=== PATIENT | female | born 1950 | race Caucasian/White ===

== ENCOUNTER → 2016-05-28 | Outpatient (CLI) | payer BC ==
--- NOTE | 2016-05-28 11:30 | CT ---
EXAMINATION TYPE: CT sinus wo con DATE OF EXAM: 05/28/2016 11:07 AM COMPARISON: NONE HISTORY: Chronic sinusitis CT DLP: 551.60 mGycm Automated exposure control for dose reduction was used. FINDINGS: Visualized intraorbital and intracranial structures are unremarkable. Ostiomeatal complex patent bilaterally. There is no significant mucosal thickening involving the para nasal sinuses. No air-fluid levels. There is a nasal septal deviation. Nasopharyngeal and visualized oral pharyngeal soft tissue structures are within normal limits. IMPRESSION: NO CT EVIDENCE OF SINUSITIS. NASAL SEPTAL DEVIATION.
--- NOTE | 2016-05-28 11:56 | FL ---
EXAMINATION TYPE: FL barium swallow DATE OF EXAM: 05/28/2016 11:36 AM COMPARISON: NONE HISTORY: Hoarseness FINDINGS: Barium swallow difficulty in passing the esophagus without delay. Esophageal peristalsis an d motility was normal. There may be a residual tiny hiatal hernia. No evidence of gastroesophageal re flux. No evidence of obstruction or extravasation. Mild fold thickening near the distal GE junction o f the esophagus. IMPRESSION: 1. Mild fold thickening involving the distal esophagus can be seen with Isaac's esophagus. Correlat e clinically.
== END | disposition home or self-care (01) ==
LOC: RADCTMAIN 10:39
PROVIDERS: ATTEND Otolaryngology
DX: J32.9 Chronic sinusitis, unspecified (principal); K22.8 Other specified diseases of esophagus
CPT/HCPCS: 70486; 74220

== ENCOUNTER 2018-03-28 10:08 | Emergency (ER) | payer BC, MEDICARE ==
[2018-03-28 10:33] VITALS: RESP 18; TEMP 97.5
[2018-03-28] MEDS ORDERED: LIDOCAINE 5% PATCH TOPICAL STA (10:48)
--- NOTE | 2018-03-28 11:10 | XR ---
EXAMINATION TYPE: XR lumbar spine 2 or 3V DATE OF EXAM: 03/28/2018 COMPARISON: None HISTORY: Back pain with plain down TECHNIQUE: Three-view lumbar spine FINDINGS: Vertebral body heights are preserved. There is some disc space narrowing present diffusely L2-3 posteriorly at L3-4. Minimal grade 1 spondylolisthesis of L4 on L5 may be present. IMPRESSION: 1. Mild degenerative disc changes mid lumbar spine. 2. Minimal grade 1 spondylolisthesis of L4 anterior and L5 may be present. 3. MRI may be useful for additional evaluation.
--- NOTE | 2018-03-28 11:34 | ED ---
General Adult HPI - General Chief complaint: Back Pain/Injury Stated complaint: lower back pain Time Seen by Provider: 03/28/18 10:37 Source: patient, RN notes reviewed Mode of arrival: ambulatory Limitations: no limitations - History of Present Illness Initial comments: Patient 67-year-old female presenting to the emergency room today with a chief complaint of increased lower back pain. She does admit that she was having some aches in her lower back over the last few days. She states today she woke up and was trying to get out of bed and felt increased pain in lower back. She states greater than the left side radiating towards the left hip. She does admit that it's worse with bending. She states that it's worse going from a laying to standing position. She states when she gets up and he has to walk around and seems to begin to feel better. Patient denies any specific injury or trauma. 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 Patient denies any other complaints. Patient denies any recent fever, chills, shortness of breath, chest pain, abdominal pain, nausea or vomiting, numbness or tingling, dysuria or hematuria, constipation or diarrhea, headaches or visual changes, or any other complaints. - Related Data Home Medications Medication Instructions Recorded Confirmed Furosemide [Lasix] 20 mg PO DAILY 09/12/13 03/28/18 Loratadine 10 mg PO DAILY 09/12/13 03/28/18 Multivitamins, Thera [Multivitamin] 1 tab PO DAILY 09/12/13 03/28/18 Potassium Chloride [Klor-Con 10] 10 meq PO DAILY 11/29/13 03/28/18 Vitamin A 10,000 units PO DAILY 11/29/13 03/28/18 Calcium Carbonate/Vitamin D3 1 tab PO DAILY 02/06/14 03/28/18 [Calcium 500 + D Tablet] Zinc 50 mg PO DAILY 03/08/14 03/28/18 Bisoprolol-Hctz 2.5-6.25 mg [Ziac 1 tab PO DAILY 03/28/18 03/28/18 2.5-6.25] Cyanocobalamin [Vitamin B-12] 500 mcg PO DAILY 03/28/18 03/28/18 Omeprazole 20 mg PO DAILY 03/28/18 03/28/18 Previous Rx's Medication Instructions Recorded Ibuprofen [Motrin] 600 mg PO Q6HR PRN #30 day 03/28/18 Lidocaine [Lidoderm 5% Patch] 1 patch TRANSDERM DAILY #7 patch 03/28/18 Allergies Allergy/AdvReac Type Severity Reaction Status Date / Time adhesive Allergy Rash/Hives, Verified 03/28/18 11:51 REDNESS grass pollen-perennial rye, Allergy NASAL Verified 03/28/18 11:51 standar CONGESTION [grass poll-perennial rye,std] Iodinated Contrast- Oral and Allergy Verified 03/28/18 11:51 IV Dye latex Allergy Rash/Hives Verified 03/28/18 11:51 nickel Allergy Rapid Verified 03/28/18 11:51 Heart Rate STERI-STRIPS Allergy Rash/Hives Uncoded 12/03/14 12:27 Review of Systems ROS Statement: Those systems with pertinent positive or pertinent negative responses have been documented in the HPI. ROS Other: All systems not noted in ROS Statement are negative. Past Medical History Past Medical History: GI Bleed, Neurologic Disorder, Renal Disease, Vascular Disorder Additional Past Medical History / Comment(s): Multiple Sclerosis. History of Any Multi-Drug Resistant Organisms: MRSA Date of last positivie culture/infection: katie stasis wound infection-FEET MDRO Source:: 2011 Past Surgical History: Bariatric Surgery, Cholecystectomy, Hernia Repair, Hysterectomy, Orthopedic Surgery, Tonsillectomy Additional Past Surgical History / Comment(s): abd laparoscopy, carpal tunnel(R) , left hand, RK; PANNICULECTOMY, HERNIA REPAIR, LINDA-EN-Y GASTRIC BYPASS Past Anesthesia/Blood Transfusion Reactions: No Reported Reaction Past Psychological History: No Psychological Hx Reported Smoking Status: Never smoker Past Alcohol Use History: None Reported Past Drug Use History: None Reported - Past Family History Mother Family Medical History: Cancer Additional Family Medical History / Comment(s): Colon Ca General Exam - General Exam Comments Initial Comments: General: The patient is awake and alert, in no distress, and does not appear acutely ill. Eye: Pupils are equal, round and reactive to light, extra-ocular movements are intact. No nystagmus. There is normal conjunctiva bilaterally. No signs of icterus. Ears, nose, mouth and throat: There are moist mucous membranes and no oral lesions. Neck: The neck is supple, there is no tenderness or JVD. Cardiovascular: There is a regular rate and rhythm. No murmur, rub or gallop is appreciated. Respiratory: Lungs are clear to auscultation, respirations are non-labored, breath sounds are equal. No wheezes, stridor, rales, or rhonchi. Gastrointestinal: Soft, non-distended, non-tender. Musculoskeletal: Patient has normal appearance of the cervical, thoracic and lumbar spine with no step-off or deformity. Does have increased lumbar tenderness beginning at L1 to L4. Patient paravertebrally tender both on left right sides of the lumbar spine. Strength 5/5. Sensation intact. Pulses equal bilaterally 2+. Neurological: A&O x 3. CN II-XII intact, There are no obvious motor or sensory deficits. Coordination appears grossly intact. Speech is normal. Skin: Skin is warm and dry and no rashes or lesions are noted. Psychiatric: Cooperative, appropriate mood & affect, normal judgment. Limitations: no limitations Course Vital Signs 03/28/18 10:28 Temperature 97.5 F L Pulse Rate 55 L Respiratory 18 Rate Blood Pressure 167/83 O2 Sat by Pulse 100 Oximetry Medical Decision Making - Medical Decision Making Patient reexamined at this time does admit that pain is improved after Lidoderm patch here in the emergency room. Patient's pain is reproduced on palpation and with certain movements of bending. Patient x-rays reviewed does show degenerative changes no acute abnormality. Results were discussed with the patient. She denies any bowel or bladder incontinence retention. No saddle anesthesia. Patient is advised to follow-up family doctor the next 2 days. Advised that she should return here to the emergency room if any symptoms increase or worsen. Patient will be discharged home with Lidoderm, anti- inflammatories for her symptoms. Disposition Clinical Impression: Acute low back pain Disposition: HOME SELF-CARE Condition: Good Instructions: Acute Low Back Pain (ED) Additional Instructions: Please use medication as discussed. Please follow-up with family doctor in the next 2 days. Please return to emergency room if any symptoms increase or worsen. Prescriptions: Ibuprofen [Motrin] 600 mg PO Q6HR PRN #30 day PRN Reason: Pain Lidocaine [Lidoderm 5% Patch] 1 patch TRANSDERM DAILY #7 patch Is patient prescribed a controlled substance at d/c from ED?: No Referrals: Emanuel Collins MD [Primary Care Provider] - 1-2 days Time of Disposition: 12:31
[2018-03-28 12:42] VITALS: BP 137/75; PULSE 53
== END 2018-03-28 12:42 | disposition home or self-care (01) ==
LOC: EC 10:08
DX: M54.5 Low back pain (principal); Z86.14 Personal history of Methicillin resistant Staphylococcus aureus infection; Z79.899 Other long term (current) drug therapy; Z91.041 Radiographic dye allergy status; Z91.040 Latex allergy status; Z91.048 Other nonmedicinal substance allergy status; Z88.8 Allergy status to other drugs, medicaments and biological substances
CPT/HCPCS: 72100; 99283